=== PATIENT | male | born 1955 | race Caucasian/White ===

== ENCOUNTER 2023-07-21 11:48 | Emergency (ER) | payer MEDICARE, MEDICAID ==
[~2023-07-21] VITALS: Ht 203.2 cm; Wt 81.6 kg
[2023-07-21 11:50] VITALS: BP_SYST 151; PULSE 65; RESP 18; TEMP 98.3; O2SAT 96
[2023-07-21] MEDS ORDERED: NACL 0.9% 1,000 ML IV ONE (12:00)
[2023-07-21 12:17] LABS: BASOPHILS % (AUTO) 0.1 % (0.0-2.0); HEMATOCRIT 43.5 % (36-54); HEMOGLOBIN 14.6 g/dL (14.0-18.0); LYMPHOCYTES # (AUTO) 1.9 K/uL (1.0-5.5); LYMPHOCYTES % (AUTO) 13.2 % (20.5-51.5); MEAN CORPUSCULAR HEMOGLOBIN 32 pg (27-31); MEAN CORPUSCULAR HGB CONC 34 % (32-36); MEAN CORPUSCULAR VOLUME 94 fL (79.0-98.0); MONOCYTES # (AUTO) 0.9 K/uL (0.0-1.0); MONOCYTES % (AUTO) 6.1 % (1.7-9.3); NEUTROPHILS # (AUTO) 11.4 K/uL (1.8-7.7); NEUTROPHILS % (AUTO) 80.6 % (40.0-70.0); PLATELET COUNT (AUTO) 220 K/uL (130-430); RED BLOOD CELL COUNT(AUTO) 4.64 MIL/uL (4.2-6.2); RED CELL DISTRIBUTION WIDTH 13.5 % (9.0-15.0); WHITE BLOOD COUNT (AUTO) 14.2 K/uL (4.8-10.8)
[2023-07-21 12:21] LABS: ALBUMIN 4.3 g/dL (3.4-4.8); CALCIUM 10.1 mg/dL (8.4-11.0); CREATININE 1.21 mg/dL (0.55-1.30); INR 1.1 (0.80-1.20); POTASSIUM 3.5 mmol/L (3.5-5.1); PROTHROMBIN TIME 10.9 SECS (9.5-12.5); TOTAL BILIRUBIN 2.1 mg/dL (0.0-1.0); TOTAL PROTEIN, SERUM 8.3 g/dL (6.4-8.3)
[2023-07-21] MEDS ORDERED: LIP20 PO (12:24)
[2023-07-21] MEDS ORDERED: ASPI-859 PO (12:24)
[2023-07-21] MEDS ORDERED: MIRT-91 PO (12:24)
[2023-07-21] MEDS ORDERED: LOSA-417 PO (12:24)
[2023-07-21] MEDS ORDERED: CALC-1263 PO (12:24)
[2023-07-21] MEDS ORDERED: levETIRAcetam 1,000 MG in NS 90 ML IV ONE (12:45)
[2023-07-21 13:13] VITALS: BP_SYST 154; PULSE 63; RESP 16; TEMP 97.5; O2SAT 97
== END 2023-07-21 13:11 | disposition short-term general hospital (02) ==
LOC: SED 11:48
DX: I61.9 Nontraumatic intracerebral hemorrhage, unspecified (principal); R53.1 Weakness; R11.10 Vomiting, unspecified; R19.7 Diarrhea, unspecified; I10 Essential (primary) hypertension; F10.11 Alcohol abuse, in remission; Z79.899 Other long term (current) drug therapy
CPT/HCPCS: 99285; 96365; 70450; 96361; 80053; 85025; 85610; 85730; 84484; 36415; 76376; J1953; J7030